=== PATIENT | male | born 1970 | race Caucasian/White ===

== ENCOUNTER 2020-11-25 14:33 | Inpatient (IN) | payer OTHER, SELFPAY ==
--- NOTE | 2020-11-25 | ECG_ITS ---
Test Reason : qtc Blood Pressure : / mmHG Vent. Rate : 056 BPM Atrial Rate : 056 BPM P-R Int : 140 ms QRS Dur : 082 ms QT Int : 440 ms P-R-T Axes : 020 040 050 degrees QTc Int : 424 ms Sinus bradycardia Otherwise normal ECG No previous ECGs available Referred By: Taylor Mendieta Electronically Signed By:BRIANNA COLON
--- NOTE | ~2020-11-25 | XR_ITS ---
EXAMINATION: XR ABDOMEN KUB CLINICAL INDICATION: Constipation COMPARISON: None TECHNIQUE: AP view of the abdomen. FINDINGS: There is stool throughout the colon suggestive of constipation. There are no dilated bowel to suggest obstruction. There is no evidence of free air. There are no calcifications. Bony structures are unremarkable. XR/XR KUB IMPRESSION: Constipation.
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
[2020-11-25 16:50] VITALS: BMI 27.4
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
[2020-11-25] MEDS: LORazepam 1 MG TABLET PO ×2 (19:42→20:59)
[2020-11-25] MEDS: Gabapentin 300 MG CAPSULE PO (20:52)
[2020-11-25] MEDS: Doxepin HCl 10 MG CAPSULE PO (20:52)
[2020-11-25 20:55] VITALS: BP 133/84; PULSE 67; RESP 18; TEMP 36.5; O2SAT 97
[2020-11-26 06:00] VITALS: BP 154/90; PULSE 64; TEMP 36.4; O2SAT 98
[2020-11-26 07:57] LABS: Estimated Average Glucose 103 mg/dL; Hemoglobin A1C 131.9684 umol/L; Hemoglobin A1c % 5.2 %
[2020-11-26 08:11] LABS: Alanine Aminotransferase 33 U/L (0-40); Alkaline Phosphatase 86 U/L (39-117); Anion Gap 13 (12-20); Aspartate Amino Transferase 20 U/L (5-37); Bilirubin Total 0.7 mg/dL (0.0-1.0); Blood Urea Nitrogen 19 mg/dL (9-16); Calcium 9.1 mg/dL (8.4-10.2); Carbon Dioxide 26 mmol/L (22-29); Chloride 106 mmol/L (96-108); Cholesterol 172 mg/dL; Creatinine Clr Calc Pharmacy 105.5; Estimated Glomerular Filt Rate > 60; Glucose Fasting 96 mg/dL (60-99); HDL Cholesterol 42 mg/dL; LDL Cholesterol Calculated 97 mg/dl; Potassium 3.8 mmol/L (3.3-5.1); Sodium 141 mmol/L (135-145); Total Protein 6.2 g/dL (6.5-8.0); Triglycerides 167 mg/dL
[2020-11-26] MEDS: Folic Acid 1 MG TABLET PO (08:22)
[2020-11-26] MEDS: LORazepam 1 MG TABLET PO ×2 (08:23)
[2020-11-26] MEDS: Gabapentin 300 MG CAPSULE PO ×3 (08:23→20:21)
[2020-11-26] MEDS: Buprenorphine/Naloxone 8/2 mg FILM 1 FILM SUBLINGUAL ×2 (08:23→16:31)
[2020-11-26] MEDS: Thiamine HCL 100 MG TABLET PO (08:23)
[2020-11-26 08:32] LABS: Thyroid Stimulating Hormone 1.38 uIU/mL (0.32-4.0)
[2020-11-26 08:45] LABS: Folate 5.1 ng/mL (> or = 4.0); Vitamin B12 362 pg/mL (200-900)
[2020-11-26 09:54] VITALS: BP 138/87; PULSE 77
[2020-11-26] MEDS: LORazepam 1 MG TABLET 2 MG PO (10:20)
--- NOTE | 2020-11-26 14:55 | MHC.CLN ---
NUTRITION NOTE SPOKE WITH PATIENT ABOUT REPORTED WEIGHT LOSS. STATED THAT LOST 20# 3 MONTHS AGO AND IS GAINING WEIGHT BACK. REPORTS GOOD APPETITE/INTAKE.LOW NUTRITIONAL RISK.
--- NOTE | 2020-11-26 16:16 | P.PNPSI_ITS ---
Subjective Subjective Date of Service: 11/27/20 Reason For Visit: PTSD Opioid use D/O Mild Subjective Notes: Conditional Voluntary Interim History: Pt reports sleeping most of the night although he did wake up few times. He reports depressed mood, anhedonia but wanting to get better and start new life. He denies suicidal or homicidal ideation. Some passive suicidal thoughts at times but denies intent. In terms of withdrawa symptoms from alcohol, pt reports less anxiety, this morning [id number], had one dose of ativan, SBP after 130's. No sweatiness, no hallucinations, no tremor, orientation intact. Medication Compliance: Yes Side effects from medications: No Attending Groups: Intermittent Review of Systems Constitutional: Reports fatigue, Denies frequent falls and Denies headache(s) Eyes: Denies blurry vision and Denies loss of vision Denies vertigo, Denies dizziness, Denies headache(s) and Denies neck pain Cardiovascular: Denies chest pain, Denies chest pain at rest, Denies syncope, Denies rapid heart rate, Denies lightheadedness, Denies dyspnea and Denies dyspnea on exertion Respiratory: Denies dyspnea and Denies dyspnea on exertion Gastrointestinal: Reports constipation (chronic with suboxone), Denies diarrhea, Denies nausea and Denies vomiting Genitourinary: Denies urinary incontinence and Denies urinary urgency Musculoskeletal: Denies myalgias, Denies muscle cramps, Denies neck pain, Denies numbness, Denies stiffness and Denies tingling Skin/Breast: Denies dry skin and Denies photosensitivity Denies behavioral changes, Denies confusion, Denies vertigo, Denies dizziness, Denies syncope, Denies frequent falls, Denies headache(s), Denies focal weakness, Denies loss of vision, Denies memory loss, Denies numbness, Denies convulsions, Denies tingling and Denies tremor(s) Psychiatric: Denies behavioral changes, Denies confusion and Denies memory loss Endocrine: Reports fatigue Mental Status Exam Mental Status Exam Narrative: Appearance: casually groomed, fair hygiene, in NAD Behavior: calm, cooperative Psychomotor: no agitation or retardation noted Speech: clear, normal rate/rhythm/volume, spontaneous TP: linear TC: no signs of psychosis, hopeless/helpless Mood: depressed Affect:blunted, tearful SI:passive, no plan or intent HI:none AH/VH:none Delusions:none Insight/judgment:fair x 2. Memory/cog: alert, oriented x 3. grossly intact to conversational testing. Diagnostics Vital Signs (24Hr): Vital Signs - 24 hr 11/25/20 20:55 11/26/20 06:00 11/26/20 09:54 Temperature 97.7 F 97.6 F Pulse Rate 67 64 77 Respiratory Rate 18 Blood Pressure 133/84 154/90 H 138/87 Pulse Oximetry 97 98 Body Mass Index 27.4 Labs Results: 11/26/20 07:34 Labs: Laboratory Results - last 48 hr 11/26/20 11/26/20 11/26/20 07:34 07:34 07:34 Sodium 141 Potassium 3.8 Chloride 106 Carbon Dioxide 26 Anion Gap 13 BUN 19 H Creatinine 0.81 Estim Creat Clear Calc 105.5 Estimated GFR > 60 Fasting Glucose 96 Estimat Average Glucose 103 Hemoglobin A1c % 5.2 Calcium 9.1 Magnesium 2.0 Total Bilirubin 0.7 AST 20 ALT 33 Alkaline Phosphatase 86 Total Protein 6.2 L Albumin 4.0 Triglycerides 167 Cholesterol 172 LDL Cholesterol, Calc 97 HDL Cholesterol 42 Vitamin B12 362 Folate 5.1 TSH 1.38 Medications Medications Current Medications Generic Name Dose Route Start Last Admin Trade Name Freq PRN Reason Stop Dose Admin Acetaminophen 650 mg 11/25/20 15:42 Acetaminophen 325 Mg Tablet PO Q6H PRN Headache/Pain Mild Scale (1-3) Al Hydroxide/Mg Hydroxide 30 ml 11/25/20 15:42 Magnesium Hydrox/Alum Hydrox 30 Ml Oral.Susp PO Q6H PRN Heartburn/Nausea Buprenorphine/Naloxone 1 film 11/26/20 08:00 11/26/20 08:23 Buprenorphine/Naloxone 8/2 Mg Film SUBLINGUAL 1 film BIDWM [facility] Administration Doxepin HCl 10 mg 11/25/20 21:00 11/25/20 20:52 Doxepin Hcl 10 Mg Capsule PO 10 mg BEDTIME [facility] Administration Folic Acid 1 mg 11/26/20 09:00 11/26/20 08:22 Folic Acid 1 Mg Tablet PO 1 mg DAILY [facility] Administration Gabapentin 300 mg 11/25/20 21:00 11/26/20 15:30 Gabapentin 300 Mg Capsule PO 300 mg TID [facility] Administration Hydroxyzine HCl 50 mg 11/25/20 15:42 Hydroxyzine Hcl 25 Mg Tablet PO Q6H PRN Anxiety Lorazepam 1 mg 11/27/20 09:00 Lorazepam 1 Mg Tablet PO 11/27/20 23:59 BID [facility] Lorazepam 2 mg 11/26/20 10:02 11/26/20 10:20 Lorazepam 1 Mg Tablet PO 2 mg Q4H PRN Administration severe etoh withdrawal symptoms Lorazepam 1 mg 11/26/20 10:02 Lorazepam 1 Mg Tablet PO Q4H PRN mild to mod alcohol w/drawal Magnesium Hydroxide 30 ml 11/25/20 15:42 Milk Of Magnesia 30 Ml Oral.Susp PO DAILY PRN Constipation Nicotine 14 mg 11/26/20 10:55 11/26/20 12:21 Nicotine 14 Mg Patch.Td24 TRANSDERMA Not Given DAILY [facility] Nicotine Polacrilex 4 mg 11/26/20 10:55 Nicotine Polacrilex 4 Mg Lozenge BUCCAL Q2H PRN Nicotine Cravings Polyethylene Glycol 17 gm 11/25/20 16:10 Polyethylene Glycol 3350 17 Gm Powd.Pack PO DAILY PRN constipation Thiamine HCl 100 mg 11/26/20 09:00 11/26/20 08:23 Thiamine Hcl 100 Mg Tablet PO 100 mg DAILY [facility] Administration Trazodone HCl 50 mg 11/25/20 15:42 Trazodone Hcl 50 Mg Tablet PO BEDTIME PRN Insomnia Allergies Allergies Allergy/AdvReac Type Severity Reaction Status Date / Time No Known Allergies Allergy Verified 11/25/20 15:42 Assessment & Plan Assessment & Plan (1) MDD (major depressive disorder), recurrent episode, moderate: Status: Acute Code(s): F33.1 - Major depressive disorder, recurrent, moderate Assessment and Plan: 1. Will start Venlafaxine 37.5mg po daily. 2. obtain collateral information 3. aftercare planning (2) Alcohol use disorder, moderate, dependence: Status: Acute Code(s): F10.20 - Alcohol dependence, uncomplicated Assessment and Plan: 1. Monitor alcohol withdrawal symptoms: Mr. Malik denies hx of withdrawal seizures or DT. He denies complications with alcohol withdrawal. He currently does not present with hyperthermia, no nausea nor vomiting, no tremors, no hallucinations, orientation is intact, no headaches, SBP<150, DBP<90, HR<100. Last drink on 11/23- past 36 hrs with minimal signs according to documentation from [place] [facility] (this typewriter assembler able to review VS since he was admitted there). Current CIWA-AR score is less than 5 (mostly some palm sweating and mild/moderate anxiety). Risk factors for complicated withdrawal include hypokalemia, however, no prior hx of complications, no medical comorbidities. Duration of alcohol use and average daily drinking not consistent predictors of severe alcohol withdrawal. Keep in mind pt has been 36hrs after last drink with minimal symptoms. Other than that, pt considered low risk at this point for further alcohol withdrawal complication. 1. Will start Gabapetin 300mg po TID for anxiety 2. Start Thiamine 100mg po daily and folic acid 1mg 3. Will do a symptom-triggered treatment approach to alcohol withdrawal symptoms (given low risk for complications mainly seizures and DT and current CIWA-AR of less than 8). (3) Cocaine use disorder, moderate, dependence: Status: Acute Code(s): F14.20 - Cocaine dependence, uncomplicated Greater than 50% of the session was spent on counseling and/or coordination of care Reason for contiued inpatient stay Substantial Risk for: harm to self
[2020-11-26 18:00] VITALS: BP 143/91; PULSE 74; RESP 18; TEMP 36.7; O2SAT 97
[2020-11-26] MEDS: hydrOXYzine HCL 25 MG TABLET 50 MG PO (18:16)
[2020-11-26] MEDS: traZODone HCL 50 MG TABLET PO (20:21)
[2020-11-26] MEDS: Doxepin HCl 10 MG CAPSULE PO (20:21)
[2020-11-27 08:30] VITALS: BP 112/78; PULSE 64; RESP 18; TEMP 36.3; O2SAT 99
--- NOTE | 2020-11-27 08:37 | HO.PSYCHPN ---
Subjective Subjective Date of Service: 11/27/20 Reason For Visit: PTSD Opioid use D/O Mild Interim History: Remains depressed. No SI in here'. iriitable. Negotiated Suboxone times. OK to give BID , earlier dose in afternoon. No s/o ETOH WD. Ct plan. Review of Systems Constitutional: Reports fatigue, Denies frequent falls and Denies headache(s) Eyes: Denies blurry vision and Denies loss of vision Denies vertigo, Denies dizziness, Denies headache(s) and Denies neck pain Cardiovascular: Denies chest pain, Denies chest pain at rest, Denies syncope, Denies rapid heart rate, Denies lightheadedness, Denies dyspnea and Denies dyspnea on exertion Respiratory: Denies dyspnea and Denies dyspnea on exertion Gastrointestinal: Reports constipation (chronic with suboxone), Denies diarrhea, Denies nausea and Denies vomiting Genitourinary: Denies urinary incontinence and Denies urinary urgency Musculoskeletal: Denies myalgias, Denies muscle cramps, Denies neck pain, Denies numbness, Denies stiffness and Denies tingling Skin/Breast: Denies dry skin and Denies photosensitivity Denies behavioral changes, Denies confusion, Denies vertigo, Denies dizziness, Denies syncope, Denies frequent falls, Denies headache(s), Denies focal weakness, Denies loss of vision, Denies memory loss, Denies numbness, Denies convulsions, Denies tingling and Denies tremor(s) Psychiatric: Denies behavioral changes, Denies confusion and Denies memory loss Endocrine: Reports fatigue Mental Status Exam Mental Status Exam Narrative: Appearance: casually groomed, fair hygiene, in NAD Behavior: calm, cooperative Psychomotor: no agitation or retardation noted Speech: clear, normal rate/rhythm/volume, spontaneous TP: linear TC: no signs of psychosis, hopeless/helpless Mood: depressed Affect:blunted, tearful SI:passive, no plan or intent HI:none AH/VH:none Delusions:none Insight/judgment:fair x 2. Memory/cog: alert, oriented x 3. grossly intact to conversational testing. Diagnostics Vital Signs (24Hr): Vital Signs - 24 hr 11/26/20 09:54 11/26/20 18:00 Temperature 98.1 F Pulse Rate 77 74 Respiratory Rate 18 Blood Pressure 138/87 143/91 H Pulse Oximetry 97 Body Mass Index 27.4 Labs Results: 11/26/20 07:34 Labs: Laboratory Results - last 48 hr 11/26/20 11/26/20 11/26/20 07:34 07:34 07:34 Sodium 141 Potassium 3.8 Chloride 106 Carbon Dioxide 26 Anion Gap 13 BUN 19 H Creatinine 0.81 Estim Creat Clear Calc 105.5 Estimated GFR > 60 Fasting Glucose 96 Estimat Average Glucose 103 Hemoglobin A1c % 5.2 Calcium 9.1 Magnesium 2.0 Total Bilirubin 0.7 AST 20 ALT 33 Alkaline Phosphatase 86 Total Protein 6.2 L Albumin 4.0 Triglycerides 167 Cholesterol 172 LDL Cholesterol, Calc 97 HDL Cholesterol 42 Vitamin B12 362 Folate 5.1 TSH 1.38 Medications Medications Current Medications Generic Name Dose Route Start Last Admin Trade Name Freq PRN Reason Stop Dose Admin Acetaminophen 650 mg 11/25/20 15:42 Acetaminophen 325 Mg Tablet PO Q6H PRN Headache/Pain Mild Scale (1-3) Al Hydroxide/Mg Hydroxide 30 ml 11/25/20 15:42 Magnesium Hydrox/Alum Hydrox 30 Ml Oral.Susp PO Q6H PRN Heartburn/Nausea Buprenorphine/Naloxone 1 film 11/26/20 08:00 11/26/20 16:31 Buprenorphine/Naloxone 8/2 Mg Film SUBLINGUAL 1 film BIDWM THEO Administration Doxepin HCl 10 mg 11/25/20 21:00 11/26/20 20:21 Doxepin Hcl 10 Mg Capsule PO 10 mg BEDTIME THEO Administration Folic Acid 1 mg 11/26/20 09:00 11/26/20 08:22 Folic Acid 1 Mg Tablet PO 1 mg DAILY THEO Administration Gabapentin 300 mg 11/25/20 21:00 11/26/20 20:21 Gabapentin 300 Mg Capsule PO 300 mg TID THEO Administration Hydroxyzine HCl 50 mg 11/25/20 15:42 11/26/20 18:16 Hydroxyzine Hcl 25 Mg Tablet PO 50 mg Q6H PRN Administration Anxiety Lorazepam 1 mg 11/27/20 09:00 Lorazepam 1 Mg Tablet PO 11/27/20 23:59 BID THEO Lorazepam 2 mg 11/26/20 10:02 11/26/20 10:20 Lorazepam 1 Mg Tablet PO 2 mg Q4H PRN Administration severe etoh withdrawal symptoms Lorazepam 1 mg 11/26/20 10:02 Lorazepam 1 Mg Tablet PO Q4H PRN mild to mod alcohol w/drawal Magnesium Hydroxide 30 ml 11/25/20 15:42 Milk Of Magnesia 30 Ml Oral.Susp PO DAILY PRN Constipation Nicotine 14 mg 11/26/20 10:55 11/26/20 12:21 Nicotine 14 Mg Patch.Td24 TRANSDERMA Not Given DAILY THEO Nicotine Polacrilex 4 mg 11/26/20 10:55 Nicotine Polacrilex 4 Mg Lozenge BUCCAL Q2H PRN Nicotine Cravings Polyethylene Glycol 17 gm 11/25/20 16:10 Polyethylene Glycol 3350 17 Gm Powd.Pack PO DAILY PRN constipation Thiamine HCl 100 mg 11/26/20 09:00 11/26/20 08:23 Thiamine Hcl 100 Mg Tablet PO 100 mg DAILY THEO Administration Trazodone HCl 50 mg 11/25/20 15:42 11/26/20 20:21 Trazodone Hcl 50 Mg Tablet PO 50 mg BEDTIME PRN Administration Insomnia Venlafaxine HCl 37.5 mg 11/27/20 09:00 Venlafaxine Hcl Er 37.5 Mg Cap.Er.24h PO DAILY THEO Allergies Allergies Allergy/AdvReac Type Severity Reaction Status Date / Time No Known Allergies Allergy Verified 11/25/20 15:42 Assessment & Plan Assessment & Plan (1) MDD (major depressive disorder), recurrent episode, moderate: Status: Acute Code(s): F33.1 - Major depressive disorder, recurrent, moderate Assessment and Plan: 1. Will start Venlafaxine 37.5mg po daily. 2. obtain collateral information 3. aftercare planning (2) Alcohol use disorder, moderate, dependence: Status: Acute Code(s): F10.20 - Alcohol dependence, uncomplicated Assessment and Plan: 1. Monitor alcohol withdrawal symptoms: Mr. Malik denies hx of withdrawal seizures or DT. He denies complications with alcohol withdrawal. He currently does not present with hyperthermia, no nausea nor vomiting, no tremors, no hallucinations, orientation is intact, no headaches, SBP<150, DBP<90, HR<100. Last drink on 11/23- past 36 hrs with minimal signs according to documentation from [facility] [place] [facility] (this technical writer and editor able to review VS since he was admitted there). Current CIWA-AR score is less than 5 (mostly some palm sweating and mild/moderate anxiety). Risk factors for complicated withdrawal include hypokalemia, however, no prior hx of complications, no medical comorbidities. Duration of alcohol use and average daily drinking not consistent predictors of severe alcohol withdrawal. Keep in mind pt has been 36hrs after last drink with minimal symptoms. Other than that, pt considered low risk at this point for further alcohol withdrawal complication. 1. Will start Gabapetin 300mg po TID for anxiety 2. Start Thiamine 100mg po daily and folic acid 1mg 3. Will do a symptom-triggered treatment approach to alcohol withdrawal symptoms (given low risk for complications mainly seizures and DT and current CIWA-AR of less than 8). (3) Cocaine use disorder, moderate, dependence: Status: Acute Code(s): F14.20 - Cocaine dependence, uncomplicated Assessment and Plan: Denies cravings Greater than 50% of the session was spent on counseling and/or coordination of care Reason for contiued inpatient stay Substantial Risk for: harm to self
[2020-11-27] MEDS: Folic Acid 1 MG TABLET PO (09:13)
[2020-11-27] MEDS: LORazepam 1 MG TABLET PO ×2 (09:14→21:20)
[2020-11-27] MEDS: Nicotine 14 MG PATCH.TD24 TRANSDERMA (09:14)
[2020-11-27] MEDS: Gabapentin 300 MG CAPSULE PO ×3 (09:14→21:20)
[2020-11-27] MEDS: Thiamine HCL 100 MG TABLET PO (09:14)
[2020-11-27] MEDS: Buprenorphine/Naloxone 8/2 mg FILM 1 FILM SUBLINGUAL ×2 (09:17→14:05)
[2020-11-27] MEDS: Venlafaxine HCl ER 37.5 MG CAP.ER.24H PO (10:42)
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
[2020-11-27 18:00] VITALS: BP 139/91; PULSE 80; RESP 18; TEMP 36.9; O2SAT 96
[2020-11-27] MEDS: traZODone HCL 50 MG TABLET PO (21:20)
[2020-11-27] MEDS: Doxepin HCl 10 MG CAPSULE PO (21:20)
[2020-11-28 06:00] VITALS: BP 149/75; PULSE 59; RESP 18; TEMP 36.3; O2SAT 98
--- NOTE | 2020-11-28 07:26 | HO.PSYCHPN ---
Subjective Subjective Date of Service: 11/28/20 Reason For Visit: PTSD Opioid use D/O Mild Subjective Notes: Conditional Voluntary Interim History: Mood depressed. No WD Sx. Slept well. We discussed regular follow up after DC. Educated on antidepressants choices. No SI today but despondent Review of Systems Review of Systems Denies any recent fever chills or decrease in appetite respiratory denies any shortness of breath coverage production cardiovascular denies chest pain gastrointestinal denies any dysphagia abdominal pain nausea vomiting or diarrhea genitourinary denies any dysuria frequency or hematuria musculoskeletal denies any joint pain or swelling neuropsych denies any weakness or seizures all other systems reviewed are negative Constitutional: Reports fatigue, Denies frequent falls and Denies headache(s) Eyes: Denies blurry vision and Denies loss of vision Denies vertigo, Denies dizziness, Denies headache(s) and Denies neck pain Cardiovascular: Denies chest pain, Denies chest pain at rest, Denies syncope, Denies rapid heart rate, Denies lightheadedness, Denies dyspnea and Denies dyspnea on exertion Respiratory: Denies dyspnea and Denies dyspnea on exertion Gastrointestinal: Reports constipation (chronic with suboxone), Denies diarrhea, Denies nausea and Denies vomiting Genitourinary: Denies urinary incontinence and Denies urinary urgency Musculoskeletal: Denies myalgias, Denies muscle cramps, Denies neck pain, Denies numbness, Denies stiffness and Denies tingling Skin/Breast: Denies dry skin and Denies photosensitivity Denies behavioral changes, Denies confusion, Denies vertigo, Denies dizziness, Denies syncope, Denies frequent falls, Denies headache(s), Denies focal weakness, Denies loss of vision, Denies memory loss, Denies numbness, Denies convulsions, Denies tingling and Denies tremor(s) Psychiatric: Denies behavioral changes, Denies confusion and Denies memory loss Endocrine: Reports fatigue Mental Status Exam Mental Status Exam Narrative: Appearance: casually groomed, fair hygiene, in NAD Behavior: calm, cooperative Psychomotor: no agitation or retardation noted Speech: clear, normal rate/rhythm/volume, spontaneous TP: linear TC: no signs of psychosis, hopeless/helpless Mood: depressed Affect:blunted, tearful SI:passive, no plan or intent HI:none AH/VH:none Delusions:none Insight/judgment:fair x 2. Memory/cog: alert, oriented x 3. grossly intact to conversational testing. Diagnostics Vital Signs (24Hr): Vital Signs - 24 hr 11/27/20 08:30 11/27/20 18:00 Temperature 97.3 F 98.4 F Pulse Rate 64 80 Respiratory Rate 18 18 Blood Pressure 112/78 139/91 H Pulse Oximetry 99 96 Body Mass Index 27.4 Labs Results: 11/26/20 07:34 Labs: Laboratory Results - last 48 hr 11/26/20 11/26/20 11/26/20 07:34 07:34 07:34 Sodium 141 Potassium 3.8 Chloride 106 Carbon Dioxide 26 Anion Gap 13 BUN 19 H Creatinine 0.81 Estim Creat Clear Calc 105.5 Estimated GFR > 60 Fasting Glucose 96 Estimat Average Glucose 103 Hemoglobin A1c % 5.2 Calcium 9.1 Magnesium 2.0 Total Bilirubin 0.7 AST 20 ALT 33 Alkaline Phosphatase 86 Total Protein 6.2 L Albumin 4.0 Triglycerides 167 Cholesterol 172 LDL Cholesterol, Calc 97 HDL Cholesterol 42 Vitamin B12 362 Folate 5.1 TSH 1.38 Medications Medications Current Medications Generic Name Dose Route Start Last Admin Trade Name Freq PRN Reason Stop Dose Admin Acetaminophen 650 mg 11/25/20 15:42 Acetaminophen 325 Mg Tablet PO Q6H PRN Headache/Pain Mild Scale (1-3) Al Hydroxide/Mg Hydroxide 30 ml 11/25/20 15:42 Magnesium Hydrox/Alum Hydrox 30 Ml Oral.Susp PO Q6H PRN Heartburn/Nausea Buprenorphine/Naloxone 1 film 11/27/20 13:30 11/27/20 14:05 Buprenorphine/Naloxone 8/2 Mg Film SUBLINGUAL 1 film BID@0830,1330 THEO Administration Doxepin HCl 10 mg 11/25/20 21:00 11/27/20 21:20 Doxepin Hcl 10 Mg Capsule PO 10 mg BEDTIME THEO Administration Folic Acid 1 mg 11/26/20 09:00 11/27/20 09:13 Folic Acid 1 Mg Tablet PO 1 mg DAILY THEO Administration Gabapentin 300 mg 11/25/20 21:00 11/27/20 21:20 Gabapentin 300 Mg Capsule PO 300 mg TID THEO Administration Hydroxyzine HCl 50 mg 11/25/20 15:42 11/26/20 18:16 Hydroxyzine Hcl 25 Mg Tablet PO 50 mg Q6H PRN Administration Anxiety Lorazepam 2 mg 11/26/20 10:02 11/26/20 10:20 Lorazepam 1 Mg Tablet PO 2 mg Q4H PRN Administration severe etoh withdrawal symptoms Lorazepam 1 mg 11/26/20 10:02 Lorazepam 1 Mg Tablet PO Q4H PRN mild to mod alcohol w/drawal Magnesium Hydroxide 30 ml 11/25/20 15:42 Milk Of Magnesia 30 Ml Oral.Susp PO DAILY PRN Constipation Nicotine 14 mg 11/26/20 10:55 11/27/20 09:14 Nicotine 14 Mg Patch.Td24 TRANSDERMA 14 mg DAILY THEO Administration Nicotine Polacrilex 4 mg 11/26/20 10:55 Nicotine Polacrilex 4 Mg Lozenge BUCCAL Q2H PRN Nicotine Cravings Polyethylene Glycol 17 gm 11/25/20 16:10 Polyethylene Glycol 3350 17 Gm Powd.Pack PO DAILY PRN constipation Thiamine HCl 100 mg 11/26/20 09:00 11/27/20 09:14 Thiamine Hcl 100 Mg Tablet PO 100 mg DAILY THEO Administration Trazodone HCl 50 mg 11/25/20 15:42 11/27/20 21:20 Trazodone Hcl 50 Mg Tablet PO 50 mg BEDTIME PRN Administration Insomnia Venlafaxine HCl 37.5 mg 11/27/20 09:00 11/27/20 10:42 Venlafaxine Hcl Er 37.5 Mg Cap.Er.24h PO 37.5 mg DAILY THEO Administration Allergies Allergies Allergy/AdvReac Type Severity Reaction Status Date / Time No Known Allergies Allergy Verified 11/25/20 15:42 Assessment & Plan Assessment & Plan (1) Cocaine use disorder, moderate, dependence: Status: Acute Code(s): F14.20 - Cocaine dependence, uncomplicated Assessment and Plan: 50-year-old man admitted to for psychiatric care. Patient has no acute or chronic medical problems other than alcohol and cocaine useand depression Alcohol use. Continue CIWA scale, last drink was 3 days ago no withdrawal symptoms continue as needed Ativan per psychiatric team Opiate abuse. Continue Suboxone Mental health. Continue treatment as per psychiatric team Attending Dr. Aleman Greater than 50% of the session was spent on counseling and/or coordination of care Continue plan . No med changes today. Reason for contiued inpatient stay Substantial Risk for: harm to self
[2020-11-28] MEDS: Nicotine 14 MG PATCH.TD24 TRANSDERMA (09:18)
[2020-11-28] MEDS: Milk of Magnesia 30 ML ORAL.SUSP PO (09:18)
[2020-11-28] MEDS: Venlafaxine HCl ER 37.5 MG CAP.ER.24H PO (09:19)
[2020-11-28] MEDS: Thiamine HCL 100 MG TABLET PO (09:19)
[2020-11-28] MEDS: Folic Acid 1 MG TABLET PO (09:19)
[2020-11-28] MEDS: Buprenorphine/Naloxone 8/2 mg FILM 1 FILM SUBLINGUAL ×2 (09:19→12:56)
[2020-11-28] MEDS: Gabapentin 300 MG CAPSULE PO ×3 (09:19→20:08)
[2020-11-28 18:00] VITALS: BP 151/81; PULSE 63; RESP 16; TEMP 36.7; O2SAT 96
[2020-11-28] MEDS: hydrOXYzine HCL 25 MG TABLET 50 MG PO (18:23)
[2020-11-28] MEDS: LORazepam 1 MG TABLET PO (20:08)
[2020-11-28] MEDS: traZODone HCL 50 MG TABLET PO (20:08)
[2020-11-28] MEDS: Doxepin HCl 10 MG CAPSULE PO (20:08)
--- NOTE | 2020-11-28 20:10 | PC.NURSE ---
Patient reported some withdrawal feeling. Patient given 1 mg Ativan PO prn
[2020-11-29] MEDS: Venlafaxine HCl ER 37.5 MG CAP.ER.24H PO (08:24)
[2020-11-29] MEDS: Thiamine HCL 100 MG TABLET PO (08:24)
[2020-11-29] MEDS: Buprenorphine/Naloxone 8/2 mg FILM 1 FILM SUBLINGUAL ×2 (08:24→13:01)
[2020-11-29] MEDS: Folic Acid 1 MG TABLET PO (08:24)
[2020-11-29] MEDS: Nicotine 14 MG PATCH.TD24 TRANSDERMA (08:24)
[2020-11-29] MEDS: Gabapentin 300 MG CAPSULE PO ×3 (08:24→21:33)
[2020-11-29 08:35] VITALS: BP 152/85; PULSE 67; RESP 16; TEMP 36.6; O2SAT 99
[2020-11-29] MEDS: polyethylene glycoL 3350 17 GM POWD.PACK PO (09:14)
[2020-11-29] MEDS: Mineral OiL enema 133 ML ENEMA PR (13:00)
--- NOTE | 2020-11-29 14:26 | HO.PSYCHPN ---
Subjective Subjective Date of Service: 11/29/20 Reason For Visit: PTSD Opioid use D/O Mild Interim History: Pt reports frequently waking up. He reports feeling more hopeless and depressed, with passive suicidal ideation but denies any plan or intent. He denies alcohol withdrawal symptoms. He has been visible in the unit, somewhat irritable at times. He report chronic back pain, used to be on flexeril. He also reports constipation- reported decrease flatus- KUB ordered constipation noted but no obstruction. He had miralax this morning, will add fleet mineral oil enema as well. We discussed increasing venlafaxine to 75mg po daily. He reports taking clonidine at night which helps with anxiety and sleep. Review of Systems Review of Systems Denies any recent fever chills or decrease in appetite respiratory denies any shortness of breath coverage production cardiovascular denies chest pain gastrointestinal denies any dysphagia abdominal pain nausea vomiting or diarrhea genitourinary denies any dysuria frequency or hematuria musculoskeletal denies any joint pain or swelling neuropsych denies any weakness or seizures all other systems reviewed are negative Constitutional: Reports fatigue, Denies frequent falls and Denies headache(s) Eyes: Denies blurry vision and Denies loss of vision Denies vertigo, Denies dizziness, Denies headache(s) and Denies neck pain Cardiovascular: Denies chest pain, Denies chest pain at rest, Denies syncope, Denies rapid heart rate, Denies lightheadedness, Denies dyspnea and Denies dyspnea on exertion Respiratory: Denies dyspnea and Denies dyspnea on exertion Gastrointestinal: Reports constipation (chronic with suboxone), Denies diarrhea, Denies nausea and Denies vomiting Genitourinary: Denies urinary incontinence and Denies urinary urgency Musculoskeletal: Denies myalgias, Denies muscle cramps, Denies neck pain, Denies numbness, Denies stiffness and Denies tingling Skin/Breast: Denies dry skin and Denies photosensitivity Denies behavioral changes, Denies confusion, Denies vertigo, Denies dizziness, Denies syncope, Denies frequent falls, Denies headache(s), Denies focal weakness, Denies loss of vision, Denies memory loss, Denies numbness, Denies convulsions, Denies tingling and Denies tremor(s) Psychiatric: Denies behavioral changes, Denies confusion and Denies memory loss Endocrine: Reports fatigue Mental Status Exam Mental Status Exam Narrative: Appearance: casually groomed, fair hygiene, in NAD Behavior: calm, cooperative Psychomotor: no agitation or retardation noted Speech: clear, normal rate/rhythm/volume, spontaneous TP: linear TC: no signs of psychosis, hopeless/helpless Mood: depressed Affect:blunted, tearful SI:passive, no plan or intent HI:none AH/VH:none Delusions:none Insight/judgment:fair x 2. Memory/cog: alert, oriented x 3. grossly intact to conversational testing. Diagnostics Vital Signs (24Hr): Vital Signs - 24 hr 11/28/20 18:00 11/29/20 08:35 Temperature 98.1 F 97.8 F Pulse Rate 63 67 Respiratory Rate 16 16 Blood Pressure 151/81 H 152/85 H Pulse Oximetry 96 99 Body Mass Index 27.4 Labs Results: 11/26/20 07:34 Imaging Radiology Impressions: ITS Impressions KUB X-Ray 11/29/20 11:08 IMPRESSION: Constipation. Medications Medications Current Medications Generic Name Dose Route Start Last Admin Trade Name Freq PRN Reason Stop Dose Admin Acetaminophen 650 mg 11/25/20 15:42 Acetaminophen 325 Mg Tablet PO Q6H PRN Headache/Pain Mild Scale (1-3) Al Hydroxide/Mg Hydroxide 30 ml 11/25/20 15:42 Magnesium Hydrox/Alum Hydrox 30 Ml Oral.Susp PO Q6H PRN Heartburn/Nausea Buprenorphine/Naloxone 1 film 11/27/20 13:30 11/29/20 13:01 Buprenorphine/Naloxone 8/2 Mg Film SUBLINGUAL 1 film BID@0830,1330 THEO Administration Cyclobenzaprine HCl 5 mg 11/29/20 15:00 Cyclobenzaprine Hcl 5 Mg Tablet PO TID THEO Doxepin HCl 20 mg 11/29/20 21:00 Doxepin Hcl 10 Mg Capsule PO BEDTIME THEO Folic Acid 1 mg 11/26/20 09:00 11/29/20 08:24 Folic Acid 1 Mg Tablet PO 1 mg DAILY THEO Administration Gabapentin 300 mg 11/25/20 21:00 11/29/20 08:24 Gabapentin 300 Mg Capsule PO 300 mg TID THEO Administration Hydroxyzine HCl 50 mg 11/25/20 15:42 11/28/20 18:23 Hydroxyzine Hcl 25 Mg Tablet PO 50 mg Q6H PRN Administration Anxiety Lorazepam 1 mg 11/26/20 10:02 11/28/20 20:08 Lorazepam 1 Mg Tablet PO 1 mg Q4H PRN Administration mild to mod alcohol w/drawal Magnesium Hydroxide 30 ml 11/25/20 15:42 11/28/20 09:18 Milk Of Magnesia 30 Ml Oral.Susp PO 30 ml DAILY PRN Administration Constipation Nicotine 14 mg 11/26/20 10:55 11/29/20 08:24 Nicotine 14 Mg Patch.Td24 TRANSDERMA 14 mg DAILY THEO Administration Nicotine Polacrilex 4 mg 11/26/20 10:55 Nicotine Polacrilex 4 Mg Lozenge BUCCAL Q2H PRN Nicotine Cravings Polyethylene Glycol 17 gm 11/30/20 09:00 Polyethylene Glycol 3350 17 Gm Powd.Pack PO DAILY THEO Thiamine HCl 100 mg 11/26/20 09:00 11/29/20 08:24 Thiamine Hcl 100 Mg Tablet PO 100 mg DAILY THEO Administration Trazodone HCl 50 mg 11/25/20 15:42 11/28/20 20:08 Trazodone Hcl 50 Mg Tablet PO 50 mg BEDTIME PRN Administration Insomnia Venlafaxine HCl 75 mg 11/30/20 09:00 Venlafaxine Hcl Er 75 Mg Cap.Er.24h PO DAILY THEO Allergies Allergies Allergy/AdvReac Type Severity Reaction Status Date / Time No Known Allergies Allergy Verified 11/25/20 15:42 Assessment & Plan Assessment & Plan (1) Cocaine use disorder, moderate, dependence: Status: Acute Code(s): F14.20 - Cocaine dependence, uncomplicated Assessment and Plan: 50-year-old man admitted to unit for depression and suicidal ideation in context of alcohol and cocaine use. MDD 1. Increase Venlafaxine to 75mg po daily 2. Increase doxepine to 20mg po qhs for sleep/mood 3. Start clonidine 0.1mg po qhs for anxiety/sleep Alcohol withdrawal- no signs at this time. Constipation -Had KUB on 11/29- no obstruction but evidence of constipation. Continue miralax and one time fleeting mineral enema on 11/29 pending effect. Opiate abuse. Continue Suboxone Mental health. Continue treatment as per psychiatric team Attending Dr. Aleman Greater than 50% of the session was spent on counseling and/or coordination of care Reason for contiued inpatient stay Substantial Risk for: harm to self
[2020-11-29] MEDS: Cyclobenzaprine HCl 5 MG TABLET PO ×2 (15:10→21:33)
[2020-11-29 17:19] VITALS: BP 139/89; PULSE 84; RESP 16; TEMP 36.9; O2SAT 97
[2020-11-29] MEDS: LORazepam 1 MG TABLET PO (20:27)
[2020-11-29 21:33] VITALS: BP 147/70; PULSE 80
[2020-11-29] MEDS: Doxepin HCl 10 MG CAPSULE 20 MG PO (21:33)
[2020-11-29] MEDS: cloNIDine HCL 0.1 MG TABLET PO (21:33)
[2020-11-30 06:00] VITALS: BP 114/78; PULSE 66; RESP 16; TEMP 36.1; O2SAT 97
--- NOTE | 2020-11-30 09:19 | HO.PSYCHPN ---
Subjective Subjective Date of Service: 12/01/20 Reason For Visit: PTSD Opioid use D/O Mild Interim History: Pt continues to report depressed mood, feeling hopeless/helpless, feeling lonely and isolated. He has not been able to talk with family and this makes him feel even more lonely. He can be irritable at times but engages in meaningful conversations. He continues to report constipation, enema not effective last night. He had miralax as well. He has been visible in the unit. He reports wanting to go to [facility]. No behavioral concerns. Review of Systems Review of Systems Denies any recent fever chills or decrease in appetite respiratory denies any shortness of breath coverage production cardiovascular denies chest pain gastrointestinal denies any dysphagia abdominal pain nausea vomiting or diarrhea genitourinary denies any dysuria frequency or hematuria musculoskeletal denies any joint pain or swelling neuropsych denies any weakness or seizures all other systems reviewed are negative Constitutional: Reports fatigue, Denies frequent falls and Denies headache(s) Eyes: Denies blurry vision and Denies loss of vision Denies vertigo, Denies dizziness, Denies headache(s) and Denies neck pain Cardiovascular: Denies chest pain, Denies chest pain at rest, Denies syncope, Denies rapid heart rate, Denies lightheadedness, Denies dyspnea and Denies dyspnea on exertion Respiratory: Denies dyspnea and Denies dyspnea on exertion Gastrointestinal: Reports constipation (chronic with suboxone), Denies diarrhea, Denies nausea and Denies vomiting Genitourinary: Denies urinary incontinence and Denies urinary urgency Musculoskeletal: Denies myalgias, Denies muscle cramps, Denies neck pain, Denies numbness, Denies stiffness and Denies tingling Skin/Breast: Denies dry skin and Denies photosensitivity Denies behavioral changes, Denies confusion, Denies vertigo, Denies dizziness, Denies syncope, Denies frequent falls, Denies headache(s), Denies focal weakness, Denies loss of vision, Denies memory loss, Denies numbness, Denies convulsions, Denies tingling and Denies tremor(s) Psychiatric: Denies behavioral changes, Denies confusion and Denies memory loss Endocrine: Reports fatigue Mental Status Exam Mental Status Exam Narrative: Appearance: casually groomed, fair hygiene, in NAD Behavior: calm, cooperative Psychomotor: no agitation or retardation noted Speech: clear, normal rate/rhythm/volume, spontaneous TP: linear TC: no signs of psychosis, hopeless/helpless Mood: depressed Affect:blunted, tearful SI:passive, no plan or intent HI:none AH/VH:none Delusions:none Insight/judgment:fair x 2. Memory/cog: alert, oriented x 3. grossly intact to conversational testing. Diagnostics Vital Signs (24Hr): Vital Signs - 24 hr 11/30/20 18:00 11/30/20 20:36 Temperature 98.3 F Pulse Rate 74 77 Respiratory Rate 16 Blood Pressure 132/91 H 148/84 H Pulse Oximetry 97 Body Mass Index 27.4 Labs Results: 11/26/20 07:34 Imaging Radiology Impressions: ITS Impressions KUB X-Ray 11/29/20 11:08 IMPRESSION: Constipation. Medications Medications Current Medications Generic Name Dose Route Start Last Admin Trade Name Freq PRN Reason Stop Dose Admin Acetaminophen 650 mg 11/25/20 15:42 Acetaminophen 325 Mg Tablet PO Q6H PRN Headache/Pain Mild Scale (1-3) Al Hydroxide/Mg Hydroxide 30 ml 11/25/20 15:42 Magnesium Hydrox/Alum Hydrox 30 Ml Oral.Susp PO Q6H PRN Heartburn/Nausea Buprenorphine/Naloxone 1 film 11/27/20 13:30 12/01/20 09:18 Buprenorphine/Naloxone 8/2 Mg Film SUBLINGUAL 1 film BID@0830,1330 THEO Administration Clonidine HCl 0.1 mg 11/29/20 21:00 11/30/20 20:36 Clonidine Hcl 0.1 Mg Tablet PO 0.1 mg BEDTIME TEHO Administration Protocol Cyclobenzaprine HCl 5 mg 11/29/20 15:00 12/01/20 09:13 Cyclobenzaprine Hcl 5 Mg Tablet PO 5 mg TID THEO Administration Doxepin HCl 20 mg 11/29/20 21:00 11/30/20 20:35 Doxepin Hcl 10 Mg Capsule PO 20 mg BEDTIME THEO Administration Folic Acid 1 mg 11/26/20 09:00 12/01/20 09:13 Folic Acid 1 Mg Tablet PO 1 mg DAILY THEO Administration Gabapentin 300 mg 11/25/20 21:00 12/01/20 09:13 Gabapentin 300 Mg Capsule PO 300 mg TID THEO Administration Hydroxyzine HCl 50 mg 11/25/20 15:42 11/28/20 18:23 Hydroxyzine Hcl 25 Mg Tablet PO 50 mg Q6H PRN Administration Anxiety Lorazepam 1 mg 11/26/20 10:02 11/29/20 20:27 Lorazepam 1 Mg Tablet PO 1 mg Q4H PRN Administration mild to mod alcohol w/drawal Magnesium Hydroxide 30 ml 11/25/20 15:42 11/28/20 09:18 Milk Of Magnesia 30 Ml Oral.Susp PO 30 ml DAILY PRN Administration Constipation Nicotine 14 mg 11/26/20 10:55 12/01/20 09:12 Nicotine 14 Mg Patch.Td24 TRANSDERMA 14 mg DAILY THEO Administration Nicotine Polacrilex 4 mg 11/26/20 10:55 Nicotine Polacrilex 4 Mg Lozenge BUCCAL Q2H PRN Nicotine Cravings Polyethylene Glycol 17 gm 11/30/20 09:00 12/01/20 09:12 Polyethylene Glycol 3350 17 Gm Powd.Pack PO 17 gm DAILY THEO Administration Thiamine HCl 100 mg 11/26/20 09:00 12/01/20 09:13 Thiamine Hcl 100 Mg Tablet PO 100 mg DAILY THEO Administration Trazodone HCl 50 mg 11/25/20 15:42 11/28/20 20:08 Trazodone Hcl 50 Mg Tablet PO 50 mg BEDTIME PRN Administration Insomnia Venlafaxine HCl 75 mg 11/30/20 09:00 12/01/20 09:13 Venlafaxine Hcl Er 75 Mg Cap.Er.24h PO 75 mg DAILY THEO Administration Allergies Allergies Allergy/AdvReac Type Severity Reaction Status Date / Time No Known Allergies Allergy Verified 11/25/20 15:42 Assessment & Plan Assessment & Plan (1) Cocaine use disorder, moderate, dependence: Status: Acute Code(s): F14.20 - Cocaine dependence, uncomplicated Assessment and Plan: 50-year-old man admitted to unit for depression and suicidal ideation in context of alcohol and cocaine use. MDD 1. Increase Venlafaxine to 75mg po daily 2. Increase doxepine to 20mg po qhs for sleep/mood 3. Start clonidine 0.1mg po qhs for anxiety/sleep Alcohol withdrawal- no signs at this time. Constipation -Had KUB on 11/29- no obstruction but evidence of constipation. Continue miralax and one time fleeting mineral enema on 11/29 pending effect. Opiate abuse. Continue Suboxone Mental health. Continue treatment as per psychiatric team Attending Dr. Aleman Greater than 50% of the session was spent on counseling and/or coordination of care Reason for contiued inpatient stay Substantial Risk for: harm to self
[2020-11-30] MEDS: Buprenorphine/Naloxone 8/2 mg FILM 1 FILM SUBLINGUAL (09:39)
[2020-11-30] MEDS: polyethylene glycoL 3350 17 GM POWD.PACK PO (09:39)
[2020-11-30] MEDS: Nicotine 14 MG PATCH.TD24 TRANSDERMA (09:39)
[2020-11-30] MEDS: Gabapentin 300 MG CAPSULE PO ×3 (09:40→20:35)
[2020-11-30] MEDS: Thiamine HCL 100 MG TABLET PO (09:40)
[2020-11-30] MEDS: Cyclobenzaprine HCl 5 MG TABLET PO ×3 (09:40→20:36)
[2020-11-30] MEDS: Folic Acid 1 MG TABLET PO (09:40)
[2020-11-30] MEDS: Venlafaxine HCl ER 75 MG CAP.ER.24H PO (11:28)
[2020-11-30 18:00] VITALS: BP 132/91; PULSE 74; RESP 16; TEMP 36.8; O2SAT 97
[2020-11-30] MEDS: Doxepin HCl 10 MG CAPSULE 20 MG PO (20:35)
[2020-11-30 20:36] VITALS: BP 148/84; PULSE 77
[2020-11-30] MEDS: cloNIDine HCL 0.1 MG TABLET PO (20:36)
[2020-12-01 06:00] VITALS: BP 98/52; PULSE 67; RESP 16; TEMP 36.2; O2SAT 98
[2020-12-01] MEDS: Nicotine 14 MG PATCH.TD24 TRANSDERMA (09:12)
[2020-12-01] MEDS: polyethylene glycoL 3350 17 GM POWD.PACK PO (09:12)
[2020-12-01] MEDS: Venlafaxine HCl ER 75 MG CAP.ER.24H PO (09:13)
[2020-12-01] MEDS: Thiamine HCL 100 MG TABLET PO (09:13)
[2020-12-01] MEDS: Folic Acid 1 MG TABLET PO (09:13)
[2020-12-01] MEDS: Gabapentin 300 MG CAPSULE PO ×3 (09:13→20:25)
[2020-12-01] MEDS: Cyclobenzaprine HCl 5 MG TABLET PO ×3 (09:13→20:25)
[2020-12-01] MEDS: Buprenorphine/Naloxone 8/2 mg FILM 1 FILM SUBLINGUAL ×2 (09:18→13:30)
--- NOTE | 2020-12-01 11:35 | HO.PSYCHPN ---
Subjective Subjective Date of Service: 12/02/20 Reason For Visit: PTSD Opioid use D/O Mild Interim History: Pt reports slight improvement in mood in that he is less hopeless. He is open to idea that although left, this is also a wake up call for him to make changes in his life. he continues to report motivation to continue substance use treatment. He denies SI/HI, although does report feeling hopeless at times. He finally had bowel movement last night. Review of Systems Review of Systems Denies any recent fever chills or decrease in appetite respiratory denies any shortness of breath coverage production cardiovascular denies chest pain gastrointestinal denies any dysphagia abdominal pain nausea vomiting or diarrhea genitourinary denies any dysuria frequency or hematuria musculoskeletal denies any joint pain or swelling neuropsych denies any weakness or seizures all other systems reviewed are negative Constitutional: Reports fatigue, Denies frequent falls and Denies headache(s) Eyes: Denies blurry vision and Denies loss of vision Denies vertigo, Denies dizziness, Denies headache(s) and Denies neck pain Cardiovascular: Denies chest pain, Denies chest pain at rest, Denies syncope, Denies rapid heart rate, Denies lightheadedness, Denies dyspnea and Denies dyspnea on exertion Respiratory: Denies dyspnea and Denies dyspnea on exertion Gastrointestinal: Reports constipation (chronic with suboxone), Denies diarrhea, Denies nausea and Denies vomiting Genitourinary: Denies urinary incontinence and Denies urinary urgency Musculoskeletal: Denies myalgias, Denies muscle cramps, Denies neck pain, Denies numbness, Denies stiffness and Denies tingling Skin/Breast: Denies dry skin and Denies photosensitivity Denies behavioral changes, Denies confusion, Denies vertigo, Denies dizziness, Denies syncope, Denies frequent falls, Denies headache(s), Denies focal weakness, Denies loss of vision, Denies memory loss, Denies numbness, Denies convulsions, Denies tingling and Denies tremor(s) Psychiatric: Denies behavioral changes, Denies confusion and Denies memory loss Endocrine: Reports fatigue Mental Status Exam Mental Status Exam Narrative: Appearance: casually groomed, fair hygiene, in NAD Behavior: calm, cooperative Psychomotor: no agitation or retardation noted Speech: clear, normal rate/rhythm/volume, spontaneous TP: linear TC: no signs of psychosis, hopeless/helpless Mood: depressed Affect:blunted, tearful SI:passive, no plan or intent HI:none AH/VH:none Delusions:none Insight/judgment:fair x 2. Memory/cog: alert, oriented x 3. grossly intact to conversational testing. Diagnostics Vital Signs (24Hr): Vital Signs - 24 hr 12/01/20 20:25 12/01/20 20:31 Temperature 97.6 F Pulse Rate 78 Blood Pressure 120/83 Pulse Oximetry 98 Body Mass Index 27.4 Labs Results: 11/26/20 07:34 Imaging Radiology Impressions: ITS Impressions KUB X-Ray 11/29/20 11:08 IMPRESSION: Constipation. Medications Medications Current Medications Generic Name Dose Route Start Last Admin Trade Name Freq PRN Reason Stop Dose Admin Acetaminophen 650 mg 11/25/20 15:42 Acetaminophen 325 Mg Tablet PO Q6H PRN Headache/Pain Mild Scale (1-3) Al Hydroxide/Mg Hydroxide 30 ml 11/25/20 15:42 Magnesium Hydrox/Alum Hydrox 30 Ml Oral.Susp PO Q6H PRN Heartburn/Nausea Buprenorphine/Naloxone 1 film 11/27/20 13:30 12/02/20 09:19 Buprenorphine/Naloxone 8/2 Mg Film SUBLINGUAL 1 film BID@0830,1330 THEO Administration Clonidine HCl 0.1 mg 11/29/20 21:00 12/01/20 20:25 Clonidine Hcl 0.1 Mg Tablet PO 0.1 mg BEDTIME THEO Administration Protocol Cyclobenzaprine HCl 5 mg 11/29/20 15:00 12/02/20 09:19 Cyclobenzaprine Hcl 5 Mg Tablet PO 5 mg TID THEO Administration Doxepin HCl 20 mg 11/29/20 21:00 12/01/20 20:25 Doxepin Hcl 10 Mg Capsule PO 20 mg BEDTIME THEO Administration Folic Acid 1 mg 11/26/20 09:00 12/02/20 09:19 Folic Acid 1 Mg Tablet PO 1 mg DAILY THEO Administration Gabapentin 300 mg 11/25/20 21:00 12/02/20 09:19 Gabapentin 300 Mg Capsule PO 300 mg TID THEO Administration Hydroxyzine HCl 50 mg 11/25/20 15:42 11/28/20 18:23 Hydroxyzine Hcl 25 Mg Tablet PO 50 mg Q6H PRN Administration Anxiety Lorazepam 1 mg 11/26/20 10:02 11/29/20 20:27 Lorazepam 1 Mg Tablet PO 1 mg Q4H PRN Administration mild to mod alcohol w/drawal Magnesium Hydroxide 30 ml 11/25/20 15:42 11/28/20 09:18 Milk Of Magnesia 30 Ml Oral.Susp PO 30 ml DAILY PRN Administration Constipation Nicotine 14 mg 11/26/20 10:55 12/02/20 09:56 Nicotine 14 Mg Patch.Td24 TRANSDERMA Not Given DAILY THEO Nicotine Polacrilex 4 mg 11/26/20 10:55 Nicotine Polacrilex 4 Mg Lozenge BUCCAL Q2H PRN Nicotine Cravings Polyethylene Glycol 17 gm 11/30/20 09:00 12/02/20 11:32 Polyethylene Glycol 3350 17 Gm Powd.Pack PO Not Given DAILY THEO Thiamine HCl 100 mg 11/26/20 09:00 12/02/20 09:19 Thiamine Hcl 100 Mg Tablet PO 100 mg DAILY THEO Administration Trazodone HCl 50 mg 11/25/20 15:42 11/28/20 20:08 Trazodone Hcl 50 Mg Tablet PO 50 mg BEDTIME PRN Administration Insomnia Venlafaxine HCl 75 mg 11/30/20 09:00 12/02/20 09:19 Venlafaxine Hcl Er 75 Mg Cap.Er.24h PO 75 mg DAILY THEO Administration Allergies Allergies Allergy/AdvReac Type Severity Reaction Status Date / Time No Known Allergies Allergy Verified 11/25/20 15:42 Assessment & Plan Assessment & Plan (1) Cocaine use disorder, moderate, dependence: Status: Acute Code(s): F14.20 - Cocaine dependence, uncomplicated Assessment and Plan: 50-year-old man admitted to unit for depression and suicidal ideation in context of alcohol and cocaine use. MDD 1. Increase Venlafaxine to 75mg po daily 2. Increase doxepine to 20mg po qhs for sleep/mood 3. Start clonidine 0.1mg po qhs for anxiety/sleep Alcohol withdrawal- no signs at this time. Constipation -Had KUB on 11/29- no obstruction but evidence of constipation. Continue miralax and one time fleeting mineral enema on 11/29 pending effect. Opiate abuse. Continue Suboxone Mental health. Continue treatment as per psychiatric team Attending Dr. Aleman Greater than 50% of the session was spent on counseling and/or coordination of care Reason for contiued inpatient stay Substantial Risk for: harm to self
[2020-12-01 20:25] VITALS: BP 120/83; PULSE 78
[2020-12-01] MEDS: Doxepin HCl 10 MG CAPSULE 20 MG PO (20:25)
[2020-12-01] MEDS: cloNIDine HCL 0.1 MG TABLET PO (20:25)
[2020-12-01 20:31] VITALS: TEMP 36.4; O2SAT 98
[2020-12-02 06:00] VITALS: BP 122/62; PULSE 78; RESP 12; TEMP 36.7; O2SAT 98
[2020-12-02] MEDS: Venlafaxine HCl ER 75 MG CAP.ER.24H PO (09:19)
[2020-12-02] MEDS: Gabapentin 300 MG CAPSULE PO ×3 (09:19→20:58)
[2020-12-02] MEDS: Folic Acid 1 MG TABLET PO (09:19)
[2020-12-02] MEDS: Thiamine HCL 100 MG TABLET PO (09:19)
[2020-12-02] MEDS: Cyclobenzaprine HCl 5 MG TABLET PO ×3 (09:19→20:58)
[2020-12-02] MEDS: Buprenorphine/Naloxone 8/2 mg FILM 1 FILM SUBLINGUAL ×2 (09:19→14:16)
--- NOTE | 2020-12-02 10:33 | HO.PSYCHPN ---
Subjective Subjective Date of Service: 12/04/20 Reason For Visit: PTSD Opioid use D/O Mild Interim History: Pt reports intermittent sleep. He reports feeling more rested this monirng. He reports slightly less depressed, more future oriented. he feels lonely as he has not talked with family. He denies SI/HI continues to express motivation to do substance use treatment. Review of Systems Review of Systems Denies any recent fever chills or decrease in appetite respiratory denies any shortness of breath coverage production cardiovascular denies chest pain gastrointestinal denies any dysphagia abdominal pain nausea vomiting or diarrhea genitourinary denies any dysuria frequency or hematuria musculoskeletal denies any joint pain or swelling neuropsych denies any weakness or seizures all other systems reviewed are negative Constitutional: Reports fatigue, Denies frequent falls and Denies headache(s) Eyes: Denies blurry vision and Denies loss of vision Denies vertigo, Denies dizziness, Denies headache(s) and Denies neck pain Cardiovascular: Denies chest pain, Denies chest pain at rest, Denies syncope, Denies rapid heart rate, Denies lightheadedness, Denies dyspnea and Denies dyspnea on exertion Respiratory: Denies dyspnea and Denies dyspnea on exertion Gastrointestinal: Reports constipation (chronic with suboxone), Denies diarrhea, Denies nausea and Denies vomiting Genitourinary: Denies urinary incontinence and Denies urinary urgency Musculoskeletal: Denies myalgias, Denies muscle cramps, Denies neck pain, Denies numbness, Denies stiffness and Denies tingling Skin/Breast: Denies dry skin and Denies photosensitivity Denies behavioral changes, Denies confusion, Denies vertigo, Denies dizziness, Denies syncope, Denies frequent falls, Denies headache(s), Denies focal weakness, Denies loss of vision, Denies memory loss, Denies numbness, Denies convulsions, Denies tingling and Denies tremor(s) Psychiatric: Denies behavioral changes, Denies confusion and Denies memory loss Endocrine: Reports fatigue Mental Status Exam Mental Status Exam Narrative: Appearance: casually groomed, fair hygiene, in NAD Behavior: calm, cooperative Psychomotor: no agitation or retardation noted Speech: clear, normal rate/rhythm/volume, spontaneous TP: linear TC: no signs of psychosis, hopeless/helpless Mood: depressed Affect:blunted, tearful SI:passive, no plan or intent HI:none AH/VH:none Delusions:none Insight/judgment:fair x 2. Memory/cog: alert, oriented x 3. grossly intact to conversational testing. Diagnostics Vital Signs (24Hr): Vital Signs - 24 hr 12/03/20 19:45 12/03/20 20:05 12/04/20 08:03 Temperature 97.2 F 97.7 F Pulse Rate 81 81 50 Respiratory Rate 18 Blood Pressure 132/77 132/77 129/86 Pulse Oximetry 97 97 Body Mass Index 27.4 Labs Results: 11/26/20 07:34 Imaging Radiology Impressions: ITS Impressions KUB X-Ray 11/29/20 11:08 IMPRESSION: Constipation. Medications Medications Current Medications Generic Name Dose Route Start Last Admin Trade Name Freq PRN Reason Stop Dose Admin Acetaminophen 650 mg 11/25/20 15:42 Acetaminophen 325 Mg Tablet PO Q6H PRN Headache/Pain Mild Scale (1-3) Al Hydroxide/Mg Hydroxide 30 ml 11/25/20 15:42 Magnesium Hydrox/Alum Hydrox 30 Ml Oral.Susp PO Q6H PRN Heartburn/Nausea Buprenorphine/Naloxone 1 film 11/27/20 13:30 12/04/20 08:57 Buprenorphine/Naloxone 8/2 Mg Film SUBLINGUAL 1 film BID@0830,1330 THEO Administration Clonidine HCl 0.1 mg 11/29/20 21:00 12/03/20 20:05 Clonidine Hcl 0.1 Mg Tablet PO 0.1 mg BEDTIME THEO Administration Protocol Cyclobenzaprine HCl 5 mg 11/29/20 15:00 12/04/20 08:57 Cyclobenzaprine Hcl 5 Mg Tablet PO 5 mg TID THEO Administration Doxepin HCl 20 mg 11/29/20 21:00 12/03/20 20:05 Doxepin Hcl 10 Mg Capsule PO 20 mg BEDTIME THEO Administration Folic Acid 1 mg 11/26/20 09:00 12/04/20 08:57 Folic Acid 1 Mg Tablet PO 1 mg DAILY THEO Administration Gabapentin 300 mg 11/25/20 21:00 12/04/20 08:57 Gabapentin 300 Mg Capsule PO 300 mg TID THEO Administration Hydroxyzine HCl 50 mg 11/25/20 15:42 11/28/20 18:23 Hydroxyzine Hcl 25 Mg Tablet PO 50 mg Q6H PRN Administration Anxiety Lorazepam 1 mg 11/26/20 10:02 11/29/20 20:27 Lorazepam 1 Mg Tablet PO 1 mg Q4H PRN Administration mild to mod alcohol w/drawal Magnesium Hydroxide 30 ml 11/25/20 15:42 11/28/20 09:18 Milk Of Magnesia 30 Ml Oral.Susp PO 30 ml DAILY PRN Administration Constipation Nicotine 14 mg 11/26/20 10:55 12/04/20 08:58 Nicotine 14 Mg Patch.Td24 TRANSDERMA 14 mg DAILY THEO Administration Nicotine Polacrilex 4 mg 11/26/20 10:55 Nicotine Polacrilex 4 Mg Lozenge BUCCAL Q2H PRN Nicotine Cravings Polyethylene Glycol 17 gm 11/30/20 09:00 12/04/20 08:57 Polyethylene Glycol 3350 17 Gm Powd.Pack PO 17 gm DAILY THEO Administration Thiamine HCl 100 mg 11/26/20 09:00 12/04/20 08:57 Thiamine Hcl 100 Mg Tablet PO 100 mg DAILY THEO Administration Trazodone HCl 50 mg 11/25/20 15:42 11/28/20 20:08 Trazodone Hcl 50 Mg Tablet PO 50 mg BEDTIME PRN Administration Insomnia Venlafaxine HCl 75 mg 11/30/20 09:00 12/04/20 08:58 Venlafaxine Hcl Er 75 Mg Cap.Er.24h PO 75 mg DAILY THEO Administration Allergies Allergies Allergy/AdvReac Type Severity Reaction Status Date / Time No Known Allergies Allergy Verified 11/25/20 15:42 Assessment & Plan Assessment & Plan (1) Cocaine use disorder, moderate, dependence: Status: Acute Code(s): F14.20 - Cocaine dependence, uncomplicated Assessment and Plan: 50-year-old man admitted to unit for depression and suicidal ideation in context of alcohol and cocaine use. MDD 1. Increase Venlafaxine to 75mg po daily 2. Increase doxepine to 20mg po qhs for sleep/mood 3. Start clonidine 0.1mg po qhs for anxiety/sleep Alcohol withdrawal- no signs at this time. Constipation -Had KUB on 11/29- no obstruction but evidence of constipation. Continue miralax and one time fleeting mineral enema on 11/29 pending effect. Opiate abuse. Continue Suboxone Mental health. Continue treatment as per psychiatric team Attending Dr. Aleman Greater than 50% of the session was spent on counseling and/or coordination of care Reason for contiued inpatient stay Substantial Risk for: harm to self
[2020-12-02 18:00] VITALS: BP 110/60; PULSE 68; TEMP 36.7; O2SAT 98
[2020-12-02 20:58] VITALS: BP 151/88; PULSE 67
[2020-12-02] MEDS: Doxepin HCl 10 MG CAPSULE 20 MG PO (20:58)
[2020-12-02] MEDS: cloNIDine HCL 0.1 MG TABLET PO (20:58)
[2020-12-02 21:15] VITALS: TEMP 36.3
[2020-12-03 06:00] VITALS: BP 142/83; PULSE 58; RESP 20; TEMP 36.3; O2SAT 98
[2020-12-03] MEDS: Cyclobenzaprine HCl 5 MG TABLET PO ×3 (09:01→20:05)
[2020-12-03] MEDS: Nicotine 14 MG PATCH.TD24 TRANSDERMA (09:01)
[2020-12-03] MEDS: Folic Acid 1 MG TABLET PO (09:01)
[2020-12-03] MEDS: Venlafaxine HCl ER 75 MG CAP.ER.24H PO (09:01)
[2020-12-03] MEDS: Gabapentin 300 MG CAPSULE PO ×3 (09:01→20:05)
[2020-12-03] MEDS: Buprenorphine/Naloxone 8/2 mg FILM 1 FILM SUBLINGUAL ×2 (09:01→13:27)
[2020-12-03] MEDS: Thiamine HCL 100 MG TABLET PO (09:01)
--- NOTE | 2020-12-03 10:36 | HO.PSYCHPN ---
Subjective Subjective Date of Service: 12/04/20 Reason For Visit: PTSD Opioid use D/O Mild Interim History: Pt reports he was able to speak with his mother who is supportive of his recovery. he reports less depressed mood, more future oriented. No SI/HI. he has been visible in the unit, social with peers. Review of Systems Review of Systems Denies any recent fever chills or decrease in appetite respiratory denies any shortness of breath coverage production cardiovascular denies chest pain gastrointestinal denies any dysphagia abdominal pain nausea vomiting or diarrhea genitourinary denies any dysuria frequency or hematuria musculoskeletal denies any joint pain or swelling neuropsych denies any weakness or seizures all other systems reviewed are negative Constitutional: Reports fatigue, Denies frequent falls and Denies headache(s) Eyes: Denies blurry vision and Denies loss of vision Denies vertigo, Denies dizziness, Denies headache(s) and Denies neck pain Cardiovascular: Denies chest pain, Denies chest pain at rest, Denies syncope, Denies rapid heart rate, Denies lightheadedness, Denies dyspnea and Denies dyspnea on exertion Respiratory: Denies dyspnea and Denies dyspnea on exertion Gastrointestinal: Reports constipation (chronic with suboxone), Denies diarrhea, Denies nausea and Denies vomiting Genitourinary: Denies urinary incontinence and Denies urinary urgency Musculoskeletal: Denies myalgias, Denies muscle cramps, Denies neck pain, Denies numbness, Denies stiffness and Denies tingling Skin/Breast: Denies dry skin and Denies photosensitivity Denies behavioral changes, Denies confusion, Denies vertigo, Denies dizziness, Denies syncope, Denies frequent falls, Denies headache(s), Denies focal weakness, Denies loss of vision, Denies memory loss, Denies numbness, Denies convulsions, Denies tingling and Denies tremor(s) Psychiatric: Denies behavioral changes, Denies confusion and Denies memory loss Endocrine: Reports fatigue Mental Status Exam Mental Status Exam Narrative: Appearance: casually groomed, fair hygiene, in NAD Behavior: calm, cooperative Psychomotor: no agitation or retardation noted Speech: clear, normal rate/rhythm/volume, spontaneous TP: linear TC: no signs of psychosis, hopeless/helpless Mood: depressed Affect:blunted, tearful SI:passive, no plan or intent HI:none AH/VH:none Delusions:none Insight/judgment:fair x 2. Memory/cog: alert, oriented x 3. grossly intact to conversational testing. Diagnostics Vital Signs (24Hr): Vital Signs - 24 hr 12/03/20 19:45 12/03/20 20:05 12/04/20 08:03 Temperature 97.2 F 97.7 F Pulse Rate 81 81 50 Respiratory Rate 18 Blood Pressure 132/77 132/77 129/86 Pulse Oximetry 97 97 Body Mass Index 27.4 Labs Results: 11/26/20 07:34 Imaging Radiology Impressions: ITS Impressions KUB X-Ray 11/29/20 11:08 IMPRESSION: Constipation. Medications Medications Current Medications Generic Name Dose Route Start Last Admin Trade Name Freq PRN Reason Stop Dose Admin Acetaminophen 650 mg 11/25/20 15:42 Acetaminophen 325 Mg Tablet PO Q6H PRN Headache/Pain Mild Scale (1-3) Al Hydroxide/Mg Hydroxide 30 ml 11/25/20 15:42 Magnesium Hydrox/Alum Hydrox 30 Ml Oral.Susp PO Q6H PRN Heartburn/Nausea Buprenorphine/Naloxone 1 film 11/27/20 13:30 12/04/20 08:57 Buprenorphine/Naloxone 8/2 Mg Film SUBLINGUAL 1 film BID@0830,1330 THEO Administration Clonidine HCl 0.1 mg 11/29/20 21:00 12/03/20 20:05 Clonidine Hcl 0.1 Mg Tablet PO 0.1 mg BEDTIME THEO Administration Protocol Cyclobenzaprine HCl 5 mg 11/29/20 15:00 12/04/20 08:57 Cyclobenzaprine Hcl 5 Mg Tablet PO 5 mg TID THEO Administration Doxepin HCl 20 mg 11/29/20 21:00 12/03/20 20:05 Doxepin Hcl 10 Mg Capsule PO 20 mg BEDTIME THEO Administration Folic Acid 1 mg 11/26/20 09:00 12/04/20 08:57 Folic Acid 1 Mg Tablet PO 1 mg DAILY THEO Administration Gabapentin 300 mg 11/25/20 21:00 12/04/20 08:57 Gabapentin 300 Mg Capsule PO 300 mg TID THEO Administration Hydroxyzine HCl 50 mg 11/25/20 15:42 11/28/20 18:23 Hydroxyzine Hcl 25 Mg Tablet PO 50 mg Q6H PRN Administration Anxiety Lorazepam 1 mg 11/26/20 10:02 11/29/20 20:27 Lorazepam 1 Mg Tablet PO 1 mg Q4H PRN Administration mild to mod alcohol w/drawal Magnesium Hydroxide 30 ml 11/25/20 15:42 11/28/20 09:18 Milk Of Magnesia 30 Ml Oral.Susp PO 30 ml DAILY PRN Administration Constipation Nicotine 14 mg 11/26/20 10:55 12/04/20 08:58 Nicotine 14 Mg Patch.Td24 TRANSDERMA 14 mg DAILY THEO Administration Nicotine Polacrilex 4 mg 11/26/20 10:55 Nicotine Polacrilex 4 Mg Lozenge BUCCAL Q2H PRN Nicotine Cravings Polyethylene Glycol 17 gm 11/30/20 09:00 12/04/20 08:57 Polyethylene Glycol 3350 17 Gm Powd.Pack PO 17 gm DAILY THEO Administration Thiamine HCl 100 mg 11/26/20 09:00 12/04/20 08:57 Thiamine Hcl 100 Mg Tablet PO 100 mg DAILY THEO Administration Trazodone HCl 50 mg 11/25/20 15:42 11/28/20 20:08 Trazodone Hcl 50 Mg Tablet PO 50 mg BEDTIME PRN Administration Insomnia Venlafaxine HCl 75 mg 11/30/20 09:00 12/04/20 08:58 Venlafaxine Hcl Er 75 Mg Cap.Er.24h PO 75 mg DAILY THEO Administration Allergies Allergies Allergy/AdvReac Type Severity Reaction Status Date / Time No Known Allergies Allergy Verified 11/25/20 15:42 Assessment & Plan Assessment & Plan (1) Cocaine use disorder, moderate, dependence: Status: Acute Code(s): F14.20 - Cocaine dependence, uncomplicated Assessment and Plan: 50-year-old man admitted to unit for depression and suicidal ideation in context of alcohol and cocaine use. MDD 1. Increase Venlafaxine to 75mg po daily 2. Increase doxepine to 20mg po qhs for sleep/mood 3. Start clonidine 0.1mg po qhs for anxiety/sleep Alcohol withdrawal- no signs at this time. Constipation -Had KUB on 11/29- no obstruction but evidence of constipation. Continue miralax and one time fleeting mineral enema on 11/29 pending effect. Opiate abuse. Continue Suboxone Mental health. Continue treatment as per psychiatric team Attending Dr. Aleman Greater than 50% of the session was spent on counseling and/or coordination of care Reason for contiued inpatient stay Substantial Risk for: harm to self
[2020-12-03 19:45] VITALS: BP 132/77; PULSE 81; RESP 18; TEMP 36.2; O2SAT 97
[2020-12-03 20:05] VITALS: BP 132/77; PULSE 81
[2020-12-03] MEDS: Doxepin HCl 10 MG CAPSULE 20 MG PO (20:05)
[2020-12-03] MEDS: cloNIDine HCL 0.1 MG TABLET PO (20:05)
[2020-12-04 08:03] VITALS: BP 129/86; PULSE 50; TEMP 36.5; O2SAT 97
[2020-12-04] MEDS: Cyclobenzaprine HCl 5 MG TABLET PO ×3 (08:57→21:44)
[2020-12-04] MEDS: Gabapentin 300 MG CAPSULE PO ×3 (08:57→21:43)
[2020-12-04] MEDS: polyethylene glycoL 3350 17 GM POWD.PACK PO (08:57)
[2020-12-04] MEDS: Buprenorphine/Naloxone 8/2 mg FILM 1 FILM SUBLINGUAL ×2 (08:57→14:18)
[2020-12-04] MEDS: Folic Acid 1 MG TABLET PO (08:57)
[2020-12-04] MEDS: Thiamine HCL 100 MG TABLET PO (08:57)
[2020-12-04] MEDS: Nicotine 14 MG PATCH.TD24 TRANSDERMA (08:58)
[2020-12-04] MEDS: Venlafaxine HCl ER 75 MG CAP.ER.24H PO (08:58)
--- NOTE | 2020-12-04 12:41 | P.PNPSI_ITS ---
Subjective Subjective Date of Service: 12/04/20 Reason For Visit: PTSD Opioid use D/O Mild Subjective Notes: Conditional Voluntary Healthcare Proxy: No Guardianship: No Medical Problems Affecting Mental Status: No Interim History: Pt feeling better tolerating new antidepessant, does not sleep well - not new- looking to go to a program for substance use Medication Compliance: Yes Side effects from medications: No Attending Groups: Yes Mental Status Exam Mental Status Exam Narrative: well kempt appropriate watching tv, or reading in his bed Patient Appearance: Well Grooomed Patient Orientation: Person, Place, Time and Situation Level of Consciousness: Awake Patient Behavior: Appropriate Mood Description: Calm Affect Description: Calm Patient Cognition Impaired: No Ability to Follow Directions: Good Speech Pattern: Clear Memory Description: Intact Hallucinations: None Delusions: Not Present Thought Process: Intact Depressive Symptoms: Difficulty Sleeping (reports this is not new, trazodone did not work/help) Judgement: Fair Diagnostics Vital Signs (24Hr): Vital Signs - 24 hr 12/03/20 19:45 12/03/20 20:05 12/04/20 08:03 Temperature 97.2 F 97.7 F Pulse Rate 81 81 50 Respiratory Rate 18 Blood Pressure 132/77 132/77 129/86 Pulse Oximetry 97 97 Body Mass Index 27.4 Labs Results: 11/26/20 07:34 Imaging Radiology Impressions: ITS Impressions KUB X-Ray 11/29/20 11:08 IMPRESSION: Constipation. Medications Medications Current Medications Generic Name Dose Route Start Last Admin Trade Name Freq PRN Reason Stop Dose Admin Acetaminophen 650 mg 11/25/20 15:42 Acetaminophen 325 Mg Tablet PO Q6H PRN Headache/Pain Mild Scale (1-3) Al Hydroxide/Mg Hydroxide 30 ml 11/25/20 15:42 Magnesium Hydrox/Alum Hydrox 30 Ml Oral.Susp PO Q6H PRN Heartburn/Nausea Buprenorphine/Naloxone 1 film 11/27/20 13:30 12/04/20 08:57 Buprenorphine/Naloxone 8/2 Mg Film SUBLINGUAL 1 film BID@0830,1330 THEO Administration Clonidine HCl 0.1 mg 11/29/20 21:00 12/03/20 20:05 Clonidine Hcl 0.1 Mg Tablet PO 0.1 mg BEDTIME THEO Administration Protocol Cyclobenzaprine HCl 5 mg 11/29/20 15:00 12/04/20 08:57 Cyclobenzaprine Hcl 5 Mg Tablet PO 5 mg TID THEO Administration Doxepin HCl 20 mg 11/29/20 21:00 12/03/20 20:05 Doxepin Hcl 10 Mg Capsule PO 20 mg BEDTIME THEO Administration Folic Acid 1 mg 11/26/20 09:00 12/04/20 08:57 Folic Acid 1 Mg Tablet PO 1 mg DAILY THEO Administration Gabapentin 300 mg 11/25/20 21:00 12/04/20 08:57 Gabapentin 300 Mg Capsule PO 300 mg TID THEO Administration Hydroxyzine HCl 50 mg 11/25/20 15:42 11/28/20 18:23 Hydroxyzine Hcl 25 Mg Tablet PO 50 mg Q6H PRN Administration Anxiety Lorazepam 1 mg 11/26/20 10:02 11/29/20 20:27 Lorazepam 1 Mg Tablet PO 1 mg Q4H PRN Administration mild to mod alcohol w/drawal Magnesium Hydroxide 30 ml 11/25/20 15:42 11/28/20 09:18 Milk Of Magnesia 30 Ml Oral.Susp PO 30 ml DAILY PRN Administration Constipation Nicotine 14 mg 11/26/20 10:55 12/04/20 08:58 Nicotine 14 Mg Patch.Td24 TRANSDERMA 14 mg DAILY THEO Administration Nicotine Polacrilex 4 mg 11/26/20 10:55 Nicotine Polacrilex 4 Mg Lozenge BUCCAL Q2H PRN Nicotine Cravings Polyethylene Glycol 17 gm 11/30/20 09:00 12/04/20 08:57 Polyethylene Glycol 3350 17 Gm Powd.Pack PO 17 gm DAILY THEO Administration Thiamine HCl 100 mg 11/26/20 09:00 12/04/20 08:57 Thiamine Hcl 100 Mg Tablet PO 100 mg DAILY HTEO Administration Trazodone HCl 50 mg 11/25/20 15:42 11/28/20 20:08 Trazodone Hcl 50 Mg Tablet PO 50 mg BEDTIME PRN Administration Insomnia Venlafaxine HCl 75 mg 11/30/20 09:00 12/04/20 08:58 Venlafaxine Hcl Er 75 Mg Cap.Er.24h PO 75 mg DAILY THEO Administration Allergies Allergies Allergy/AdvReac Type Severity Reaction Status Date / Time No Known Allergies Allergy Verified 11/25/20 15:42 Assessment & Plan Assessment & Plan (1) Cocaine use disorder, moderate, dependence: Status: Acute Code(s): F14.20 - Cocaine dependence, uncomplicated (2) Alcohol use disorder, moderate, dependence: Status: Acute Code(s): F10.20 - Alcohol dependence, uncomplicated (3) MDD (major depressive disorder), recurrent episode, moderate: Status: Acute Code(s): F33.1 - Major depressive disorder, recurrent, moderate Assessment and Plan: 50-year-old man admitted to unit for depression and suicidal ideation in context of alcohol and cocaine use. MDD 1. on Venlafaxine to 75mg po daily 2. Increase doxepine to 40mg po qhs for sleep/mood 3. continue clonidine 0.1mg po qhs for anxiety/sleep Alcohol withdrawal- no signs at this time dced lorazepam wasn't getting prns anyway. Opiate abuse. Continue Suboxone looking to go to substance abuse treatment program from [facility]. Continue treatment as per psychiatric team Greater than 50% of the session was spent on counseling and/or coordination of care Reason for contiued inpatient stay Substantial Risk for: rapid decompensation
[2020-12-04 21:40] VITALS: BP 143/80; PULSE 78; TEMP 36.3; O2SAT 97
[2020-12-04 21:43] VITALS: BP 143/80; PULSE 78
[2020-12-04] MEDS: Doxepin HCl 10 MG CAPSULE 40 MG PO (21:43)
[2020-12-04] MEDS: cloNIDine HCL 0.1 MG TABLET PO (21:43)
[2020-12-04] MEDS: hydrOXYzine HCL 25 MG TABLET 50 MG PO (21:56)
[2020-12-05 06:00] VITALS: BP 130/87; PULSE 68; RESP 16; TEMP 36.6; O2SAT 98
[2020-12-05] MEDS: Cyclobenzaprine HCl 5 MG TABLET PO ×3 (08:58→20:28)
[2020-12-05] MEDS: Buprenorphine/Naloxone 8/2 mg FILM 1 FILM SUBLINGUAL ×2 (08:58→13:22)
[2020-12-05] MEDS: Folic Acid 1 MG TABLET PO (08:59)
[2020-12-05] MEDS: Thiamine HCL 100 MG TABLET PO (08:59)
[2020-12-05] MEDS: Gabapentin 300 MG CAPSULE PO ×3 (08:59→20:28)
[2020-12-05] MEDS: Venlafaxine HCl ER 75 MG CAP.ER.24H PO (08:59)
--- NOTE | 2020-12-05 12:58 | HO.PSYCHPN ---
Subjective Subjective Date of Service: 12/05/20 Reason For Visit: PTSD Opioid use D/O Mild Subjective Notes: Conditional Voluntary Healthcare Proxy: No Guardianship: No Medical Problems Affecting Mental Status: No Interim History: Slept last night- feeling better mild constipation Medication Compliance: Yes Side effects from medications: Yes (constipation not new) Attending Groups: Yes Mental Status Exam Mental Status Exam Narrative: dressed, kempt, good eye contact Patient Appearance: Appropriate Patient Orientation: Person, Place, Time and Situation Level of Consciousness: Awake Patient Behavior: Appropriate Mood Description: Calm Affect Description: Calm Patient Cognition Impaired: No Ability to Follow Directions: Good Speech Pattern: Clear Thought Process: Intact Thought Content: positive for Intact Judgement: Fair Diagnostics Vital Signs (24Hr): Vital Signs - 24 hr 12/04/20 21:40 12/04/20 21:43 12/05/20 06:00 Temperature 97.4 F 97.8 F Pulse Rate 78 78 68 Respiratory Rate 16 Blood Pressure 143/80 H 143/80 H 130/87 Pulse Oximetry 97 98 Body Mass Index 27.4 Labs Results: 11/26/20 07:34 Imaging Radiology Impressions: ITS Impressions KUB X-Ray 11/29/20 11:08 IMPRESSION: Constipation. Medications Medications Current Medications Generic Name Dose Route Start Last Admin Trade Name Freq PRN Reason Stop Dose Admin Acetaminophen 650 mg 11/25/20 15:42 Acetaminophen 325 Mg Tablet PO Q6H PRN Headache/Pain Mild Scale (1-3) Al Hydroxide/Mg Hydroxide 30 ml 11/25/20 15:42 Magnesium Hydrox/Alum Hydrox 30 Ml Oral.Susp PO Q6H PRN Heartburn/Nausea Buprenorphine/Naloxone 1 film 11/27/20 13:30 12/05/20 08:58 Buprenorphine/Naloxone 8/2 Mg Film SUBLINGUAL 1 film BID@0830,1330 THEO Administration Clonidine HCl 0.1 mg 11/29/20 21:00 12/04/20 21:43 Clonidine Hcl 0.1 Mg Tablet PO 0.1 mg BEDTIME THEO Administration Protocol Cyclobenzaprine HCl 5 mg 11/29/20 15:00 12/05/20 08:58 Cyclobenzaprine Hcl 5 Mg Tablet PO 5 mg TID THEO Administration Doxepin HCl 40 mg 12/04/20 21:00 12/04/20 21:43 Doxepin Hcl 10 Mg Capsule PO 40 mg BEDTIME THEO Administration Folic Acid 1 mg 11/26/20 09:00 12/05/20 08:59 Folic Acid 1 Mg Tablet PO 1 mg DAILY THEO Administration Gabapentin 300 mg 11/25/20 21:00 12/05/20 08:59 Gabapentin 300 Mg Capsule PO 300 mg TID THEO Administration Hydroxyzine HCl 50 mg 11/25/20 15:42 12/04/20 21:56 Hydroxyzine Hcl 25 Mg Tablet PO 50 mg Q6H PRN Administration Anxiety Magnesium Hydroxide 30 ml 11/25/20 15:42 11/28/20 09:18 Milk Of Magnesia 30 Ml Oral.Susp PO 30 ml DAILY PRN Administration Constipation Nicotine 14 mg 11/26/20 10:55 12/05/20 10:03 Nicotine 14 Mg Patch.Td24 TRANSDERMA Not Given DAILY THEO Nicotine Polacrilex 4 mg 11/26/20 10:55 Nicotine Polacrilex 4 Mg Lozenge BUCCAL Q2H PRN Nicotine Cravings Polyethylene Glycol 17 gm 11/30/20 09:00 12/05/20 10:03 Polyethylene Glycol 3350 17 Gm Powd.Pack PO Not Given DAILY THEO Thiamine HCl 100 mg 11/26/20 09:00 12/05/20 08:59 Thiamine Hcl 100 Mg Tablet PO 100 mg DAILY THEO Administration Trazodone HCl 50 mg 11/25/20 15:42 11/28/20 20:08 Trazodone Hcl 50 Mg Tablet PO 50 mg BEDTIME PRN Administration Insomnia Venlafaxine HCl 75 mg 11/30/20 09:00 12/05/20 08:59 Venlafaxine Hcl Er 75 Mg Cap.Er.24h PO 75 mg DAILY THEO Administration Allergies Allergies Allergy/AdvReac Type Severity Reaction Status Date / Time No Known Allergies Allergy Verified 11/25/20 15:42 Assessment & Plan Assessment & Plan (1) Cocaine use disorder, moderate, dependence: Status: Acute Code(s): F14.20 - Cocaine dependence, uncomplicated (2) Alcohol use disorder, moderate, dependence: Status: Acute Code(s): F10.20 - Alcohol dependence, uncomplicated (3) MDD (major depressive disorder), recurrent episode, moderate: Status: Acute Code(s): F33.1 - Major depressive disorder, recurrent, moderate Assessment and Plan: 50-year-old man admitted to unit for depression and suicidal ideation in context of alcohol and cocaine use. MDD 1. on Venlafaxine to 75mg po daily 2. doxepine to 40mg po qhs for sleep/mood 3. continue clonidine 0.1mg po qhs for anxiety/sleep Alcohol withdrawal- no signs at this time dced lorazepam wasn't getting prns anyway. Opiate abuse. Continue Suboxone looking to go to substance abuse treatment program from [facility]. Continue treatment as per psychiatric team Greater than 50% of the session was spent on counseling and/or coordination of care Reason for contiued inpatient stay Substantial Risk for: rapid decompensation
[2020-12-05 20:28] VITALS: BP 148/88; PULSE 77
[2020-12-05] MEDS: hydrOXYzine HCL 25 MG TABLET 50 MG PO (20:28)
[2020-12-05] MEDS: cloNIDine HCL 0.1 MG TABLET PO (20:28)
[2020-12-05] MEDS: Doxepin HCl 10 MG CAPSULE 40 MG PO (20:28)
[2020-12-05 20:39] VITALS: TEMP 36.8; O2SAT 97
[2020-12-06 06:00] VITALS: BP 145/74; PULSE 77; RESP 20; TEMP 36.5; O2SAT 98
--- NOTE | 2020-12-06 08:54 | P.PNPSI_ITS ---
Subjective Subjective Date of Service: 12/07/20 Reason For Visit: PTSD Opioid use D/O Mild Subjective Notes: Conditional Voluntary Interim History: Marleni reports feeling much less depressed, more hopeful about his future less negative thoughts about himself. He reports sleeping better as well. He continues to report motivation to continue residential substance use treatment. No SI/HI. he has been visible in unit, social with select peers. Medication Compliance: Yes Side effects from medications: No Review of Systems Review of Systems Denies any recent fever chills or decrease in appetite respiratory denies any shortness of breath coverage production cardiovascular denies chest pain gastrointestinal denies any dysphagia abdominal pain nausea vomiting or diarrhea genitourinary denies any dysuria frequency or hematuria musculoskeletal denies any joint pain or swelling neuropsych denies any weakness or seizures all other systems reviewed are negative Constitutional: Reports fatigue, Denies frequent falls and Denies headache(s) Eyes: Denies blurry vision and Denies loss of vision Denies vertigo, Denies dizziness, Denies headache(s) and Denies neck pain Cardiovascular: Denies chest pain, Denies chest pain at rest, Denies syncope, Denies rapid heart rate, Denies lightheadedness, Denies dyspnea and Denies dyspnea on exertion Respiratory: Denies dyspnea and Denies dyspnea on exertion Gastrointestinal: Reports constipation (chronic with suboxone), Denies diarrhea, Denies nausea and Denies vomiting Genitourinary: Denies urinary incontinence and Denies urinary urgency Musculoskeletal: Denies myalgias, Denies muscle cramps, Denies neck pain, Denies numbness, Denies stiffness and Denies tingling Skin/Breast: Denies dry skin and Denies photosensitivity Denies behavioral changes, Denies confusion, Denies vertigo, Denies dizziness, Denies syncope, Denies frequent falls, Denies headache(s), Denies focal weakness, Denies loss of vision, Denies memory loss, Denies numbness, Denies convulsions, Denies tingling and Denies tremor(s) Psychiatric: Denies behavioral changes, Denies confusion and Denies memory loss Endocrine: Reports fatigue Mental Status Exam Mental Status Exam Narrative: Appearance: casually groomed, fair hygiene, in NAD Behavior: calm, cooperative Psychomotor: no agitation or retardation noted Speech: clear, normal rate/rhythm/volume, spontaneous TP: linear TC: no signs of psychosis, future oriented, more hopeful Mood: better Affect:brighter SI:denies HI:none AH/VH:none Delusions:none Insight/judgment:fair x 2. Memory/cog: alert, oriented x 3. grossly intact to conversational testing. Diagnostics Vital Signs (24Hr): Vital Signs - 24 hr 12/06/20 20:31 12/06/20 21:03 12/07/20 08:09 Temperature 97.7 F 97.7 F Pulse Rate 92 72 Respiratory Rate 16 Blood Pressure 129/79 139/85 Pulse Oximetry 96 98 Body Mass Index 27.4 Labs Results: 11/26/20 07:34 Labs: Laboratory Results - last 48 hr 12/06/20 19:58 COVID-19 ([facility]) Negative COVID-19 Clin Com See Note Imaging Radiology Impressions: ITS Impressions KUB X-Ray 11/29/20 11:08 IMPRESSION: Constipation. Medications Medications Current Medications Generic Name Dose Route Start Last Admin Trade Name Freq PRN Reason Stop Dose Admin Acetaminophen 650 mg 11/25/20 15:42 Acetaminophen 325 Mg Tablet PO Q6H PRN Headache/Pain Mild Scale (1-3) Al Hydroxide/Mg Hydroxide 30 ml 11/25/20 15:42 Magnesium Hydrox/Alum Hydrox 30 Ml Oral.Susp PO Q6H PRN Heartburn/Nausea Buprenorphine/Naloxone 1 film 11/27/20 13:30 12/07/20 07:57 Buprenorphine/Naloxone 8/2 Mg Film SUBLINGUAL 1 film BID@0830,1330 THEO Administration Clonidine HCl 0.1 mg 11/29/20 21:00 12/06/20 20:31 Clonidine Hcl 0.1 Mg Tablet PO 0.1 mg BEDTIME THEO Administration Protocol Cyclobenzaprine HCl 5 mg 11/29/20 15:00 12/07/20 07:58 Cyclobenzaprine Hcl 5 Mg Tablet PO 5 mg TID THEO Administration Doxepin HCl 40 mg 12/04/20 21:00 12/06/20 20:31 Doxepin Hcl 10 Mg Capsule PO 40 mg BEDTIME THEO Administration Folic Acid 1 mg 11/26/20 09:00 12/07/20 07:59 Folic Acid 1 Mg Tablet PO 1 mg DAILY THEO Administration Gabapentin 300 mg 11/25/20 21:00 12/07/20 07:59 Gabapentin 300 Mg Capsule PO 300 mg TID THEO Administration Hydroxyzine HCl 50 mg 11/25/20 15:42 12/06/20 20:31 Hydroxyzine Hcl 25 Mg Tablet PO 50 mg Q6H PRN Administration Anxiety Magnesium Hydroxide 30 ml 11/25/20 15:42 11/28/20 09:18 Milk Of Magnesia 30 Ml Oral.Susp PO 30 ml DAILY PRN Administration Constipation Nicotine 14 mg 11/26/20 10:55 12/07/20 07:58 Nicotine 14 Mg Patch.Td24 TRANSDERMA 14 mg DAILY THEO Administration Nicotine Polacrilex 4 mg 11/26/20 10:55 Nicotine Polacrilex 4 Mg Lozenge BUCCAL Q2H PRN Nicotine Cravings Ondansetron HCl 4 mg 12/06/20 20:12 Ondansetron Odt 4 Mg Tab.Rapdis TRANSLINGU Q6H PRN Nausea Polyethylene Glycol 17 gm 11/30/20 09:00 12/07/20 07:58 Polyethylene Glycol 3350 17 Gm Powd.Pack PO 17 gm DAILY THEO Administration Thiamine HCl 100 mg 11/26/20 09:00 12/07/20 07:59 Thiamine Hcl 100 Mg Tablet PO 100 mg DAILY THEO Administration Trazodone HCl 50 mg 11/25/20 15:42 11/28/20 20:08 Trazodone Hcl 50 Mg Tablet PO 50 mg BEDTIME PRN Administration Insomnia Venlafaxine HCl 75 mg 11/30/20 09:00 12/07/20 07:59 Venlafaxine Hcl Er 75 Mg Cap.Er.24h PO 75 mg DAILY THEO Administration Allergies Allergies Allergy/AdvReac Type Severity Reaction Status Date / Time No Known Allergies Allergy Verified 11/25/20 15:42 Assessment & Plan Assessment & Plan (1) Cocaine use disorder, moderate, dependence: Status: Acute Code(s): F14.20 - Cocaine dependence, uncomplicated (2) Alcohol use disorder, moderate, dependence: Status: Acute Code(s): F10.20 - Alcohol dependence, uncomplicated (3) MDD (major depressive disorder), recurrent episode, moderate: Status: Acute Code(s): F33.1 - Major depressive disorder, recurrent, moderate Assessment and Plan: 50-year-old man admitted to unit for depression and suicidal ideation in context of alcohol and cocaine use. MDD 1. on Venlafaxine to 75mg po daily 2. doxepine to 40mg po qhs for sleep/mood 3. continue clonidine 0.1mg po qhs for anxiety/sleep Alcohol withdrawal- no signs at this time dced lorazepam wasn't getting prns anyway. Opiate abuse. Continue Suboxone looking to go to substance abuse treatment program from [facility]. Continue treatment as per psychiatric team Greater than 50% of the session was spent on counseling and/or coordination of care Reason for contiued inpatient stay Substantial Risk for: stable for discharge
[2020-12-06] MEDS: Nicotine 14 MG PATCH.TD24 TRANSDERMA (09:36)
[2020-12-06] MEDS: Buprenorphine/Naloxone 8/2 mg FILM 1 FILM SUBLINGUAL ×2 (09:36→13:41)
[2020-12-06] MEDS: Thiamine HCL 100 MG TABLET PO (09:37)
[2020-12-06] MEDS: Folic Acid 1 MG TABLET PO (09:37)
[2020-12-06] MEDS: Venlafaxine HCl ER 75 MG CAP.ER.24H PO (09:37)
[2020-12-06] MEDS: Gabapentin 300 MG CAPSULE PO ×3 (09:37→20:31)
[2020-12-06] MEDS: Cyclobenzaprine HCl 5 MG TABLET PO ×3 (09:37→20:31)
[2020-12-06 20:25] LABS: COVID-19 Test Negative (Negative)
[2020-12-06 20:31] VITALS: BP 129/79; PULSE 92
[2020-12-06] MEDS: hydrOXYzine HCL 25 MG TABLET 50 MG PO (20:31)
[2020-12-06] MEDS: cloNIDine HCL 0.1 MG TABLET PO (20:31)
[2020-12-06] MEDS: Doxepin HCl 10 MG CAPSULE 40 MG PO (20:31)
[2020-12-06 21:03] VITALS: TEMP 36.5; O2SAT 96
[2020-12-07] MEDS: Buprenorphine/Naloxone 8/2 mg FILM 1 FILM SUBLINGUAL (07:57)
[2020-12-07] MEDS: polyethylene glycoL 3350 17 GM POWD.PACK PO (07:58)
[2020-12-07] MEDS: Cyclobenzaprine HCl 5 MG TABLET PO (07:58)
[2020-12-07] MEDS: Nicotine 14 MG PATCH.TD24 TRANSDERMA (07:58)
[2020-12-07] MEDS: Folic Acid 1 MG TABLET PO (07:59)
[2020-12-07] MEDS: Thiamine HCL 100 MG TABLET PO (07:59)
[2020-12-07] MEDS: Gabapentin 300 MG CAPSULE PO (07:59)
[2020-12-07] MEDS: Venlafaxine HCl ER 75 MG CAP.ER.24H PO (07:59)
[2020-12-07 08:09] VITALS: BP 139/85; PULSE 72; RESP 16; TEMP 36.5; O2SAT 98
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
[2020-12-07] MEDS: Naloxone HCl Nasal TAKE HOME 4 MG SPRAY NOSTRILALT (09:35)
== END 2020-12-07 12:15 | disposition home or self-care (01) | DRG 751 ==
PROVIDERS: Admitting Provider Psychiatry & Neurology Psychiatry; Visit Provider Social Worker
DX: F33.1 Major depressive disorder, recurrent, moderate (principal); R45.851 Suicidal ideations; F11.20 Opioid dependence, uncomplicated; F43.10 Post-traumatic stress disorder, unspecified; F10.20 Alcohol dependence, uncomplicated; G89.29 Other chronic pain; K59.00 Constipation, unspecified; F14.20 Cocaine dependence, uncomplicated; Z20.822 Contact with and (suspected) exposure to COVID-19; F17.210 Nicotine dependence, cigarettes, uncomplicated; Z71.6 Tobacco abuse counseling; Z79.899 Other long term (current) drug therapy
CPT/HCPCS: 36415; 74018; 80053; 80061; 82607; 82746; 83036; 83735; 84443; 87635; 93005